=== PATIENT | female | born 1935 | race Caucasian/White ===

== ENCOUNTER → 2016-06-14 | Outpatient (CLI) | payer MEDICARE, OTHER | END | disposition home or self-care (01) | LOC: PCVCCLINIC 10:32 | PROVIDERS: ATTEND Internal Medicine | DX: I10 Essential (primary) hypertension (principal); E78.5 Hyperlipidemia, unspecified; E11.9 Type 2 diabetes mellitus without complications; Z95.4 Presence of other heart-valve replacement | CPT/HCPCS: 80061; 93005; G0463 ==

== ENCOUNTER → 2016-12-27 | Outpatient (CLI) | payer MEDICARE, OTHER | END | disposition home or self-care (01) | LOC: PCVCCLINIC 11:07 | PROVIDERS: ATTEND Internal Medicine | DX: I10 Essential (primary) hypertension (principal); E11.9 Type 2 diabetes mellitus without complications; E78.5 Hyperlipidemia, unspecified; Z95.4 Presence of other heart-valve replacement; Z90.722 Acquired absence of ovaries, bilateral; Z90.710 Acquired absence of both cervix and uterus; Z79.82 Long term (current) use of aspirin | CPT/HCPCS: 80061; 93005; G0463 ==

== ENCOUNTER → 2017-06-30 | Outpatient (CLI) | payer MEDICARE, OTHER | END | disposition home or self-care (01) | LOC: PCVCIMAG 09:38 | DX: I07.1 Rheumatic tricuspid insufficiency (principal); I10 Essential (primary) hypertension; E11.9 Type 2 diabetes mellitus without complications; E78.5 Hyperlipidemia, unspecified; R94.31 Abnormal electrocardiogram [ECG] [EKG]; Z95.4 Presence of other heart-valve replacement; Z79.899 Other long term (current) drug therapy; Z79.82 Long term (current) use of aspirin | CPT/HCPCS: 80061; 93005; 93306; G0463 ==

== ENCOUNTER → 2018-01-12 | Outpatient (CLI) | payer MEDICARE, OTHER | END | disposition home or self-care (01) | LOC: PCVCCLINIC 10:50 | PROVIDERS: ATTEND Internal Medicine | DX: Z48.812 Encounter for surgical aftercare following surgery on the circulatory system (principal); I10 Essential (primary) hypertension; E78.5 Hyperlipidemia, unspecified; E11.9 Type 2 diabetes mellitus without complications; Z95.4 Presence of other heart-valve replacement; Z79.82 Long term (current) use of aspirin | CPT/HCPCS: 93005; G0463 ==

== ENCOUNTER → 2018-07-13 | Outpatient (CLI) | payer MEDICARE, OTHER ==
--- NOTE | 2018-07-13 10:47 | PCVCIMAG ---
APPROVED REPORT Study performed: 07/13/2018 09:03:33 EXAM: Comprehensive 2D, Doppler, and color-flow Echocardiogram Patient Location: Echo lab Room #: 2Status: routine BSA: 1.86 HR: 54 bpmBP: 144/76 mmHg Rhythm: Bradycardia Other Information Study Quality: Good Risk Factors: Cardiac Risk Factors: HTN, Hyperlipidemia Indications Mitral Valve Disease Cardiomyopathy S/P [facility] #29 Bioprosthetic mitral valve 2D Dimensions IVSd: 7.64 (7-11mm)LVOT Diam: 19.68 (18-24mm) LVDd: 53.15 mm PWd: 8.54 (7-11mm)Ascending Ao: 27.23 (22-36mm) LVDs: 30.88 (25-40mm) Left Atrium: 42.10 (27-40mm) Aortic Root: 23.51 mm LV Single Plane 4CH: 56.41 % LV Single Plane 2CH: 48.91 % Biplane EF: 53.2 % Volumes Left Atrial Volume (Systole) Single Plane 4CH: 83.17 mLSingle Plane 2CH: 87.16 mL Biplane LA Volume: 87.00 mLLA ESV Index: 47.00 mL/m2 Aortic Valve AoV Peak Ricardo.: 1.25 m/s AO Peak Gr.: 6.29 mmHgLVOT Max P.96 mmHg LVOT Max V: 0.86 m/s WILLY Vmax: 2.08 cm2 Mitral Valve MV Peak Gr.: 13.87 mmHg MV Mean Gr.: 5.18 mmHgE/A Ratio: 0.9 MV Decel. Time: 431.01 ms MV E Max Ricardo.: 1.63 m/s MV A Ricardo.: 1.78 m/s MV Max Ricardo.: 1.86 m/s MV Mean Ricardo.: 1.07 m/s MV VTI: 635.62 mm MV PHT: 124.00 ms TDI E/Lateral E': 27.17E/Medial E': 40.75 Medial E' Ricardo.: 0.04 m/s Lateral E' Ricardo.: 0.06 m/s Pulmonary Valve PV Peak Ricardo.: 0.85 m/sPV Peak Gr.: 2.86 mmHg Pulmonary Vein P Vein S: 0.48 m/sP Vein A: 0.20 m/s P Vein D: 0.50 m/sP Vein A Dur.: 86.5 msec P Vein S/D Ratio: 0.96 Tricuspid Valve TR Peak Ricardo.: 2.67 m/s TR Peak Gr.: 28.51 mmHg TV Vmax: 0.60 m/sPA Pressure: 36.00 mmHg Left Ventricle The left ventricle is normal size. There is normal LV segmental wall motion. There is normal left ventricular wall thickness. Left ventricular systolic function is normal. The left ventricular ejection fraction is within the normal range. LVEF is 50-55%. This study is not technically sufficient to allow evaluation of the LV diastolic function due to atrial fibrillation. Right Ventricle The right ventricle is normal size. The right ventricular systolic function is normal. Atria Left atrium is moderately dilated. The right atrium size is normal. Aortic Valve Aortic valve is trileaflet. No aortic regurgitation is present. There is no aortic valvular stenosis. Mitral Valve A #29 [facility] bioprosthetic valve is functioning normally in the mitral position (Mean gradient 5mmHg). There is no mitral valve regurgitation noted. No evidence of mitral valve stenosis. Tricuspid Valve The tricuspid valve is normal in structure. Mild tricuspid regurgitation with a PA pressure of 36 mmHg Mild pulmonary hypertension Pulmonic Valve The pulmonary valve is normal in structure. There is no pulmonic valvular regurgitation. Great Vessels The aortic root is normal in size. The ascending aorta is normal in size. Aortic arch is normal in caliber. IVC is normal in size and collapses >50% with inspiration. Pericardium There is no pericardial effusion. There is no pleural effusion. <Conclusion> Left ventricular systolic function is normal. There is normal LV segmental wall motion. LVEF 55%. Left atrium is moderately dilated. Aortic valve is trileaflet. No aortic regurgitation or stenosis A #29 [facility] bioprosthetic valve is functioning normally in the mitral position (Mean gradient 5mmHg). There is no mitral valve regurgitation Mild tricuspid regurgitation with a pulmonary artery pressure of 36 mmHg There is no pericardial effusion.
== END | disposition home or self-care (01) ==
LOC: PCVCIMAG 08:59
PROVIDERS: ATTEND Internal Medicine
DX: I07.1 Rheumatic tricuspid insufficiency (principal); I10 Essential (primary) hypertension; E78.5 Hyperlipidemia, unspecified; Z95.4 Presence of other heart-valve replacement
CPT/HCPCS: 36415; 93005; 93306; G0463

== ENCOUNTER → 2019-02-07 | Outpatient (CLI) | payer MEDICARE, OTHER | END | disposition home or self-care (01) | LOC: PCVCCLINIC 16:02 | PROVIDERS: ATTEND Internal Medicine | DX: I10 Essential (primary) hypertension (principal); E78.5 Hyperlipidemia, unspecified; R94.31 Abnormal electrocardiogram [ECG] [EKG]; E11.9 Type 2 diabetes mellitus without complications; E78.00 Pure hypercholesterolemia, unspecified; M19.90 Unspecified osteoarthritis, unspecified site; Z80.3 Family history of malignant neoplasm of breast; Z82.49 Family history of ischemic heart disease and other diseases of the circulatory system; Z82.3 Family history of stroke; Z79.82 Long term (current) use of aspirin; Z95.4 Presence of other heart-valve replacement | CPT/HCPCS: 93005; G0463 ==